=== PATIENT | male | born 1970 | race Caucasian/White ===

== ENCOUNTER → 2024-11-03 07:43 | Outpatient (REF) | payer BC, SELFPAY | LOC: HWRAD 07:43 | PROVIDERS: ATTENDING PHYSICIAN Physician Assistant Medical | DX: Z87.891 Personal history of nicotine dependence (principal) | CPT/HCPCS: 71271 ==

== ENCOUNTER 2024-11-09 13:02 | Emergency (ER) | payer BC, SELFPAY ==
[2024-11-09 13:03] VITALS: BP 111/75
[2024-11-09 13:41] LABS: Hematocrit 38.7 % (39.0-52.0); Hemoglobin 13.3 g/dL (13.0-18.0); Mean Corp Hgb Conc. 34.4 g/dL (33.0-37.0); Mean Corpuscular Volume 84.1 fL (80.0-94.0); Nucleated Red Blood Cells % 0 % (-); Platelet Count 287 10^3/uL (130-400); Red Cell Dist. Width 13.1 % (11.5-14.5)
[2024-11-09 14:02] LABS: ALT (SGPT) 13 U/L (0-50); AST (SGOT) 16 U/L (17-59); Albumin 4.9 g/dl (3.5-5.0); Alkaline Phosphatase 56 U/L (38-126); Blood Urea Nitrogen 18 mg/dl (9-20); Calcium 9.5 mg/dl (8.4-10.2); Carbon Dioxide 26 mmol/L (22-30); Chloride 105 mmol/L (98-107); Glucose 95 mg/dl (70-99); Potassium 4.8 mmol/L (3.5-5.1); Sodium 138 mmol/L (135-145); Total Protein 8.3 g/dl (6.3-8.2); eGFR > 60.00
[2024-11-09 14:04] LABS: COVID-19 Antigen Negative (Negative)
[2024-11-09 16:00] VITALS: BMI 26.9
--- NOTE | 2024-11-09 16:14 | ED.GENMED ---
History of Present Illness
General
Chief Complaint: Fever
Source: patient and physician (Called in for primary care doctor stated he was coming in for fever.)
Exam Limitations: none
Time Seen by Provider: 11/09/24 15:56
Nursing documentation reviewed up to this point in time: agreed with
History of Present Illness
History of Present Illness:
54-year-old male presents Emergency Department due to fever for the past 8 days. It has been as high as 101, but at least 100.5 every day. He was started on Augmentin 3 days ago for bronchitis. He states he has a mild cough. Denies shortness of
breath. He reports headaches and bodyaches. No travel history.
Past History
Past History
ED Past Medical History: None
ED Past Surgical History: Appendectomy
Social History
Tobacco: Non-smoker
Alcohol: None
Drug: None
Personal:
Living: with family
Review of Systems
Review of Systems
Allergies reviewed?: Yes
All Other Systems: Not applicable
Constitutional: Reports fever
EENT: Reports no symptoms
Respiratory: Reports cough
Cardiac: Reports no symptoms
ABD/GI: Reports no symptoms
: Reports no symptoms
Musculoskeletal: Reports muscle pain
Skin: Reports no symptoms
Neurological: Reports headache
Endocrine: Reports no symptoms
Hematologic/Lymphatic: Reports no symptoms
Psychiatric: Reports no symptoms
Phy Exam
Physical Exam
Physical Exam:
Physical Exam
General: no apparent distress, not acutely ill
Neck: supple. no meningeal signs. normal posterior pharynx
Heart: s1/s2 regular rate and rhythm, no murmur. equal radial
pulses.
HEENT: Pupils equal round reactive to light, EOMI
Lungs: no acute respiratory distress. clear bilaterally
Abdomen: normal bowel sounds. not tender. no CVAT
Neuro: alert and oriented. no focal neurological deficits cranial nerves II through XII intact
Skin: no rash
Psychiatric: well kept. interactive and cooperative
Extremities: no edema. no calf tenderness. negative homans. good distal pulses
Sepsis
Sepsis Screening
Sepsis Assessment: Sepsis Ruled Out
Sepsis Screen
Sepsis Screen: Sepsis Ruled Out
Date: 11/09/24
Time: 23:16
Course
Orders/Labs/Results
Orders:
Orders
11/09/24 13:15
COVID-19 Antigen Urgent
Source: Nasal Swab
Complete Blood Count/With Diff Urgent
Comprehensive Metabolic Panel Urgent
Influenza A+B Rapid Molecular Urgent
ALEKSANDR Source: Nasal Swab
Specimen Description:
11/09/24 16:11
CR Chest - 2 Views Urgent
Comment:
Reason For Exam: fever 7 days, cough
11/09/24 16:16
Ehrlichia chaffeensis Ab Panel [S] Urgent
Lactic Acid Q4H
Comment: CANCEL 2nd LACTIC ACID IF 1st LACTIC ACID IS LESS THAN 2
Lyme Progressive Urgent
Monotest Urgent
Blood Culture Q30M
ALEKSANDR Source: Blood/Venous
Specimen Description:
Blood Culture Q30M
ALEKSANDR Source: Blood/Venous
Specimen Description:
11/09/24 16:37
Urinalysis Reflex To Culture Urgent
Date Specimen was Collected: 11/09/24
Time Specimen was Collected: 16:35
Urine Microscopic Reflex Cult Urgent
11/09/24 17:10
US Abdomen Complete/Upper Urgent
Comment:
Reason For Exam: ruq pain, fevers, mono
US Groin (Imaging Only) RT Urgent
Comment:
Reason For Exam: groin lump/mass
11/09/24 20:16
Ondansetron Injectable [Zofran] 4 mg IV NOW STA
Abnormal Lab Results
11/09/24 11/09/24 11/09/24
13:15 16:16 16:37
RBC 4.60 L 10^6/uL
(4.70-6.10)
Hct 38.7 L %
(39.0-52.0)
AST 16 L U/L
(17-59)
Total Protein 8.3 H g/dl
(6.3-8.2)
Urine Ketones 3+ A
(Negative)
Ur Occult Blood Reflex 1+ A
(Negative)
Urine Bacteria (Reflex) Few A
(Negative)
Urine Albumin (Reflex) 2+ A
(Neg - Trace)
Monoscreen Positive A
(Negative)
11/09/24 13:15
11/09/24 13:15
Vital Signs
Initial and Last Documented VS:
Initial Vital Signs
Temp Pulse Resp BP Pulse Ox
98.4 F 79 20 111/75 100
11/09/24 13:03 11/09/24 13:03 11/09/24 13:03 11/09/24 13:03 11/09/24 13:03
Last Documented Vital Signs
Temp Pulse Resp BP Pulse Ox
99.0 F 86 18 111/75 87
11/09/24 16:32 11/09/24 16:32 11/09/24 16:32 11/09/24 13:03 11/09/24 16:32
MDM/Problems Addressed
Differential Diagnosis Includes:
Pneumonia, sepsis
MDM/Problems Addressed:
54-year-old male with fever and fatigue the past week. [place] screen positive. This fits his symptoms. No other infectious source seen. Stable for discharge.
*Radiology
Radiology exam reviewed: preliminary read by ED provider (Chest x-ray no acute finding)
*Pulse Oximetry
SaO2: 100
Oxygen Mode of Delivery: Room air
Patient hypoxic: no
*Critical Care Note
Total Time (30-74mins, 75-104mins- exclusive of procedures): Not Applicable
Data Reviewed
Review of Other/Old Records Reveals: Radiology Studies (ct chest showed multiple nodules 11/03/24)
Source: records
Patient Management
Social determinants of health affecting care: Living situation and Strong social support
Escalation/DeEscalation of care consider admission/obs:
admit not indicated
ED Attending Note
-
Portions of this chart may have been created with voice recognition software.� Occasional wrong word or��sound alike� substitutions may have occurred due to the inherent limitations of voice recognition software.
Discharge Plan
Departure
Patient Disposition: Home (Routine Discharge)
Date of Disposition: 11/09/24
Time of Disposition: 20:17
Patient with high blood pressure during this ER visit?: No
Condition: Good
Discharge Problem:
Mononucleosis, Lipoma of groin, Nonalcoholic hepatosteatosis
Instructions: Metabolic dysfunction-associated steatotic liver disease, Mononucleosis
Referrals:
Kristine Barillas PA-C [Family Provider, Family Practice] - Call in 1-3 days for appt
Interventions
Interventions:
*Risk Screen - Suicide Last Done: 11/09/24 13:03
*General Assessment Last Done: 11/09/24 13:03
*Neglect/Abuse Screening Last Done: 11/09/24 13:03
*ED COVID-19 Vaccine History Last Done: 11/09/24 16:00
*Nursing Disposition Last Done: 11/09/24 21:23
ED- Neurological Assessment Last Done: 11/09/24 16:00
ED-Skin Assessment Last Done: 11/09/24 16:00
Discharge Date and Time
Discharge Date/Time: 11/09/24 21:24
Print Language: LITHUANIAN
[2024-11-09 16:50] LABS: Urine Character Clear (Clear)
[2024-11-09 17:03] LABS: Urine Squamous Cell 0-2 /LPF (Few)
[2024-11-09 17:04] LABS: Urine Red Blood Cell 0-2 /HPF (0-2); Urine White Cell 0-2 /HPF (0-5)
[2024-11-09] MEDS: ZOFRAN 4 MG IV (20:21)
[2024-11-10 14:14] LABS: Lyme Antibody Screen, EIA Negative (Negative)
[2024-11-15 03:06] LABS: Ehrlichia chaffeensis IgM Ab < 1:16 (< 1:16)
== END 2024-11-09 21:24 | disposition home or self-care (01) ==
LOC: EMR 13:02
PROVIDERS: Student in an Organized Health Care Education/Training Program; EMERGENCY PHYSICIAN Emergency Medicine; FAMILY PHYSICIAN Physician Assistant Medical
DX: B27.90 Infectious mononucleosis, unspecified without complication (principal); D17.1 Benign lipomatous neoplasm of skin and subcutaneous tissue of trunk; K76.0 Fatty (change of) liver, not elsewhere classified; Z90.49 Acquired absence of other specified parts of digestive tract
CPT/HCPCS: 99284; 96374; 71046; 76700; 76882; 80053; 81003; 81015; 83605; 85025; 86308; 86618; 86666; 87040; 87502; 87811